=== PATIENT | male | born 2000 | race Caucasian/White ===

== ENCOUNTER 2025-10-08 17:51 | Emergency (ER) | payer OTHER ==
[~2025-10-08] VITALS: Ht 180.3 cm; Wt 90.8 kg
[2025-10-08 21:19] VITALS: BP 125/71; PULSE 92; RESP 20; TEMP 98.1; O2SAT 95
[2025-10-08] MEDS ORDERED: ACET500T58 PO (21:19)
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
== END 2025-10-08 21:38 | disposition home or self-care (01) ==
LOC: ER 17:51
DX: S29.012A Strain of muscle and tendon of back wall of thorax, initial encounter (principal); M54.2 Cervicalgia; Z91.040 Latex allergy status; Z79.899 Other long term (current) drug therapy; V49.40XA Driver injured in collision with unspecified motor vehicles in traffic accident, initial encounter; Y93.89 Activity, other specified; Y92.488 Other paved roadways as the place of occurrence of the external cause; Y99.8 Other external cause status